=== PATIENT | female | born 1980 | race Caucasian/White ===

== ENCOUNTER → 2016-05-05 | Outpatient (CLI) | payer BC | LOC: BMCIMAGING 09:06 | PROVIDERS: ATTEND Family Medicine | DX: M25.561 Pain in right knee (principal) ==

== ENCOUNTER → 2018-04-08 | Outpatient (CLI) | payer BC | LOC: BMCIMAGING 12:00 | PROVIDERS: ATTEND Family Medicine | DX: R05 Cough (principal) ==